=== PATIENT | female | born 1995 | race Caucasian/White ===

== ENCOUNTER 2021-08-14 09:24 | Emergency (ER) | payer BC, SELFPAY ==
--- NOTE | ~2021-08-14 | US_ITS ---
EXAMINATION: US OB <=14 wk fetus w TV DATE: 08/14/2021 10:52 INDICATION: Abdominal pain during first trimester TECHNIQUE: Real-time pelvic ultrasound utilizing both a transvaginal and transabdominal probe was pe rformed. The interpreting radiologist was not present for the study. COMPARISON: None. FINDINGS: The uterus measures 7.3 x 5.5 x 4.9 cm. There is an intrauterine gestational sac. A yolk sac is iden tified but no measurable pole. The mean sac diameter measures 1.6 cm, which correlates with an estimated gestational age of 6 weeks and 3 days. The right ovary measures 2.5 x 2.1 x 1.8 cm. The left ovary measures 3.8 x 1.8 x 1.8 cm. There is no free fluid in the pelvis. IMPRESSION: 1. Intrauterine gestational sac with yolk sac but no measurable pole yet apparent likely due to early stage of . 2. Gestational age by ultrasound of 6 weeks 3 day(s) +/- 4 day(s) with ultrasound estimated date of delivery (LANRE) of 04/06/2022. Reviewed, dictated and finalized at location B. IMPRESSION: 1. Intrauterine gestational sac with yolk sac but no measurable pole yet apparent likely due to early stage of . 2. Gestational age by ultrasound of 6 weeks 3 day(s) +/- 4 day(s) with ultraso und estimated date of delivery (LANRE) of 04/06/2022.
[2021-08-14 09:31] VITALS: BP 132/78; PULSE 92; RESP 14; TEMP 36.6; O2SAT 99
--- NOTE | 2021-08-14 09:35 | PC.NURSE ---
Patient states she has syncopal episodes when having blood drawn and does not wish to have labs drawn in triage.
--- NOTE | 2021-08-14 09:58 | ED.ABDPAIN ---
HPI - Abdominal Pain General Chief Complaint: Abdominal Pain Stated Complaint: 6 weeks , abdominal pain Time Seen by Provider: 08/14/21 09:56 Source: patient and family Mode of arrival: ambulatory Limitations: no limitations History of Present Illness HPI narrative: The patient is a 25-year-old female, G1, P0, currently 6 weeks dated by last menstrual period and positive at home test, who presents to the emergency department for evaluation of abdominal pain, nausea and vomiting. Patient reports she has had nausea with this with daily episodes of emesis, but reports increase in frequency of emesis over the past 24 hours as well as cramping abdominal pain in the middle to upper abdomen. Patient denies lower abdominal pain, vaginal bleeding, vaginal discharge, contraction-like pain or loss of fluids. She denies any flank pain, dysuria or hematuria. She reports loose stools consistent with diarrhea without blood or mucus present. She denies constipation. Patient has not been taking anything for her nausea. She is going to establish with the [facility] but has not had a confirmatory ultrasound or follow-up in their clinic at this point. Patient denies fever, chills, chest pain, cough. She does report mild congestion without sore throat. Patient has a history of COVID infection in 2020 which did not require hospitalization. She is fully vaccinated. Related Data Home Medications Medication Instructions Recorded Confirmed escitalopram oxalate mg 08/14/21 Allergies Allergy/AdvReac Type Severity Reaction Status Date / Time No Known Allergies Allergy Mild Verified 06/22/10 09:18 Review of Systems Review of Systems: CONSTITUTIONAL: Denies fever, chills, or sweats. EYES: Denies visual changes, redness, or discharge. ENT: Reports rhinorrhea, congestion, denies sore throat or otalgia CARDIOVASCULAR: Denies chest pain, palpitations, or edema. RESPIRATORY: Denies cough or dyspnea. GASTROINTESTINAL: Reports abdominal pain, nausea, vomiting, diarrhea GENITOURINARY: Denies dysuria or hematuria. SKIN: Denies rash or itching. MUSCULOSKELETAL: Denies back pain, joint pain, or myalgia. NEUROLOGIC: Denies headache, numbness, or weakness. [facility] Family History Family History (Updated 11/18/15 @ 23:19 by DOCTOR UNKNOWN) Father Family history of diabetes mellitus in first degree relative Social History Social History Smoking status: Never smoker Second hand tobacco smoke exposure: No Alcohol intake: never Exam Narrative: GENERAL: Awake, alert, conversant HEAD: Normocephalic, atraumatic. EYES: PERRLA and EOMI. ENT: Nares clear, no rhinorrhea or epistaxis. Mucous membranes moist. NECK: Supple. CHEST: No respiratory distress, breathing even and non labored HEART: Regular rate, sinus rhythm ABDOMEN:Non distended, tender throughout the periumbilical area without rebound, rigidity or guarding, no flank tenderness EXTREMITIES: Normal range of motion. No edema. SKIN: Warm, dry, no rash. NEURO:No focal deficits. Alert and oriented x3 Course Vital Signs Vital signs: Vital Signs Temperature 36.6 C 08/14/21 09:31 Pulse Rate 92 08/14/21 09:31 Respiratory Rate 14 08/14/21 09:31 Blood Pressure 132/78 08/14/21 09:31 Pulse Oximetry 99 08/14/21 09:31 Temperature 36.6 C 08/14/21 09:31 Pulse Rate 92 08/14/21 09:31 Respiratory Rate 14 08/14/21 09:31 Blood Pressure 132/78 08/14/21 09:31 Pulse Oximetry 99 08/14/21 09:31 MDM - Abdominal Pain MDM Narrative Medical decision making narrative: Patient presenting for evaluation abdominal pain in the setting of early . Consistent with vomiting, loose stools which may be clinically consistent with gastroenteritis. Patient without focal right lower quadrant pain on exam no focal right upper quadrant pain on exam which makes clinical diagnosis of appendicitis or cholecystitis very unlik
[2021-08-14 10:22] LABS: Basophils Absolute Auto 0.1 K/mm3 (0.0-0.1); Basophils Percent Auto 0.6 % (0.2-1.2); Eosinophils Absolute Auto 0.1 K/mm3 (0-0.3); Eosinophils Percent Auto 1.2 % (0-4.4); Hemoglobin 12.7 g/dL (12.0-15.0); Immature Granulocyte Absolute 0.03 K/mm3 (0.00-0.031); Immature Granulocyte Percent A 0.4 % (0-0.5); Lymphocytes Absolute Auto 1.97 K/mm3 (0.9-3.2); Lymphocytes Percent Auto 23.9 % (18.3-44.2); Mean Corpuscular HGB Conc 35.3 g/dl (32-36); Mean Corpuscular Hemoglobin 31.9 pg (26-34); Mean Corpuscular Volume 90.5 fl (80-100); Mean Platelet Volume 8.7 fl (7.4-10.4); Monocytes Absolute Auto 0.6 K/mm3 (0.1-0.6); Monocytes Percent Auto 6.7 % (2.6-8.5); Neutrophils Absolute Auto 5.5 K/mm3 (1.3-6.7); Neutrophils Percent Auto 67.2 % (45.5-73.1); Platelet Count Result 303 k/mm3 (150-375); Red Blood Count 3.98 M/mm3 (4.2-5.4); Red Cell Distribution Width 11.6 % (11.5-14.5); White Blood Count 8.2 K/mm3 (4.5-10.0)
[2021-08-14 10:33] LABS: Alanine Aminotransferase 10 U/L (4-35); Albumin Level 4.1 g/dL (3.5-5.1); Alkaline Phosphatase 51 U/L (38-126); Anion Gap 7 mmol/L (8-16); Aspartate Amino Transferase 22 U/L (14-36); Bilirubin,Total 0.7 mg/dL (0.2-1.3); Blood Urea Nitrogen 10 mg/dL (7-17); Calcium 8.6 mg/dL (8.4-10.2); Carbon Dioxide 20 mmol/L (22-30); Chloride 108 mmol/L (98-107); Estimated CRCL calculation 140 ml/min; Estimated Glomerular Filt Rate > 60; Glucose 93 mg/dL (65-110); Lipase 49 U/L (23-300); Potassium 3.7 mmol/L (3.4-5.0); Sodium 135 mmol/L (137-145)
[2021-08-14] MEDS: METOCLOPRAMIDE HCL INJ 10 MG/2 ML VIAL IV PUSH (11:09)
[2021-08-14 11:11] LABS: Add Urine Microscopic? YES; Appearance Urine Cloudy (Clear); Bilirubin Urine Negative (Negative); Blood Urine Negative (Negative); Color Urine Yellow (Yellow); Glucose Urine UA Negative (Negative); Ketones Urine 1+ mg/dL (Negative); Leukocyte Esterase Ur Trace LEU/UL (Negative); Mucus Urine Few /lpf; Nitrate Urine Negative (Negative); Protein Urine Negative (Negative); Specific Grav Ur 1.024 (1.001-1.035); Squamous Epithelial Cell Urine Many /hpf (Few); Urobilinogen Urine Negative mg/dL (<2.0)
--- NOTE | 2021-08-14 13:31 | PC.NURSE ---
PT stated she was ready to leave. PT did not want to stay any longer and requested to be discharged.
== END 2021-08-14 13:29 | disposition home or self-care (01) ==
PROVIDERS: Emergency Provider Emergency Medicine
DX: O26.891 Other specified pregnancy related conditions, first trimester (principal); R10.9 Unspecified abdominal pain; O99.281 Endocrine, nutritional and metabolic diseases complicating pregnancy, first trimester; E86.0 Dehydration; Z86.16 Personal history of COVID-19; Z3A.01 Less than 8 weeks gestation of pregnancy
CPT/HCPCS: 36415; 76801; 76817; 80053; 81001; 81025; 83690; 84702; 85025; 85461; 96374; 96375; 99284; J0131; J2765

== ENCOUNTER 2021-11-21 13:30 | Outpatient (CLI) | payer BC, MEDICAID, SELFPAY ==
--- NOTE | 2021-11-23 16:13 | WPDHOLTEREM ---
Holter/Event Monitor Holter/Event Monitor Date of procedure: 11/21/21 Holter/Event Procedure: 24 Hr Holter Monitor Indications: Tachycardia/RBBB Conclusion: 1. 24 hour holter monitor on 11/21/21. 2. Underlying rhythm is sinus rhythm. HR range 59-138 bpm; average HR 85 bpm. 3. No premature supraventricular complexes. No supraventricular tachycardia. 4. There are 2 premature ventricular complexes. No ventricular tachycardia. 5. No sinoatrial or atrioventricular blocks. No significant pauses greater than 2 seconds. 6. Patient reports symptoms of heart beating hard, chest pain, dizziness which demonstrate sinus rhythm, HR range 84-104 bpm.
== END 2021-11-21 13:31 | disposition home or self-care (01) ==
LOC: ANHCARD 13:33
PROVIDERS: PCP Registered Nurse; Visit Provider Obstetrics & Gynecology
DX: R00.0 Tachycardia, unspecified (principal)
CPT/HCPCS: 93225; 93226

== ENCOUNTER 2022-03-23 13:43 | Outpatient (RCR) | payer OTHER, MEDICAID, SELFPAY ==
[2022-03-23 14:19] VITALS: BP 114/72; PULSE 77
== END 2022-04-20 13:23 | disposition home or self-care (01) ==
LOC: ANHOBOP 13:43
PROVIDERS: PCP Registered Nurse; Visit Provider Obstetrics & Gynecology
DX: O36.8130 Decreased fetal movements, third trimester, not applicable or unspecified (principal); Z3A.37 37 weeks gestation of pregnancy
CPT/HCPCS: 59025

== ENCOUNTER 2022-04-05 18:07 | Inpatient (IN) | payer OTHER, MEDICAID, SELFPAY ==
[2022-04-05] VITALS (79 sets, daily range): BP systolic 93–120; BP diastolic 43–77; PULSE 75–105; RESP 18; TEMP 36.3–36.6; O2SAT 93–100; BMI 33.1
--- NOTE | 2022-04-05 18:27 | LDADM ---
This patient, Lavonne Brown, was admitted to Labor/Delivery/Recovery 106 on 04/05/22 at 18:07. Plans for labor, pain management and were discussed with patient. Patient/family oriented to hospital policies and general routines including ID bracelet, bed and alarms, visiting hours, pain management, procedures, bathroom and other care routines, personal items, smoking policy, room service/diet and guest tray routines, security routines, and visiting hours. Patient/Family are encouraged to report perceived risks to care and to ask questions if they do not understand what they are told or what they should do. See OBIX for further documentation.
[2022-04-05 18:42] LABS: Basophils Percent Auto 0.2 % (0.2-1.2); Eosinophils Absolute Auto 0.3 K/mm3 (0-0.3); Eosinophils Percent Auto 2.7 % (0-4.4); Hematocrit 35.4 % (37.0-47.0); Hemoglobin 11.8 g/dL (12.0-15.0); Immature Granulocyte Absolute 0.08 K/mm3 (0.00-0.031); Immature Granulocyte Percent A 0.7 % (0-0.5); Lymphocytes Absolute Auto 1.49 K/mm3 (0.9-3.2); Lymphocytes Percent Auto 13.3 % (18.3-44.2); Mean Corpuscular HGB Conc 33.3 g/dl (32-36); Mean Corpuscular Hemoglobin 31.4 pg (26-34); Mean Corpuscular Volume 94.1 fl (80-100); Monocytes Absolute Auto 0.5 K/mm3 (0.1-0.6); Monocytes Percent Auto 4.8 % (2.6-8.5); Neutrophils Absolute Auto 8.8 K/mm3 (1.3-6.7); Neutrophils Percent Auto 78.3 % (45.5-73.1); Platelet Count Result 294 k/mm3 (150-375); Red Blood Count 3.76 M/mm3 (4.2-5.4); Red Cell Distribution Width 13.1 % (11.5-14.5); White Blood Count 11.2 K/mm3 (4.5-10.0)
[2022-04-05] MEDS: LACTATED RINGERS 1,000 ML 125 ML IV CONT ×2 (19:30→23:40)
[2022-04-05] MEDS: ONDANSETRON INJ 4 MG/2 ML VIAL IV PUSH (19:40)
[2022-04-05] MEDS: OXYTOCIN 30 UNITS/NS 500 ML 30 UNITS/500 ML BAG 6 UNITS IV CONT (20:23)
[2022-04-06] VITALS (188 sets, daily range): BP systolic 87–139; BP diastolic 41–98; PULSE 25–128; RESP 16–18; TEMP 36.6–37.1; O2SAT 82–100
[2022-04-06 05:18] LABS: Amphetamine Screen Urine Negative (Negative); Barbiturate Screen Urine Negative (Negative); Benzodiazepines Screen Urine Negative (Negative); Cannabinoid Screen Urine Positive (Negative); Cocaine Screen Urine Negative (Negative); Methadone Screen Urine Negative (Negative); Opiate Screen Urine Negative (Negative); Phencyclidine Screen Urine Negative (Negative)
--- NOTE | 2022-04-06 06:40 | WPDANESEPP ---
Anes - Eval Pre Procedure Procedure: labor epidural Date/Time: 04/06/22 06:40 Pre Op Diagnosis: IOL Patient Data Age: 26 Gender: F Height: 1.7 m Weight: 96 kg Last Vital Signs Temp 36.6 C 04/05/22 23:00 Pulse 106 H 04/06/22 06:15 Resp 18 04/05/22 23:00 BP 139/91 H 04/06/22 06:15 Pulse Ox 100 04/06/22 06:37 O2 Del Method Room Air 04/05/22 18:26 Allergies Allergy/AdvReac Type Severity Reaction Status Date / Time No Known Allergies Allergy Mild Verified 03/13/22 15:51 Home Medications Medication Instructions Recorded Confirmed Type acetaminophen 500 mg capsule 500 mg PO Q6H PRN fever or pain 08/14/21 Rx #30 caps escitalopram oxalate 20 mg tablet 20 mg 08/14/21 History Laboratory Tests 04/05/22 04/05/22 04/05/22 18:36 18:36 18:36 WBC 11.2 K/mm3 H K/mm3 (4.5-10.0) RBC 3.76 M/mm3 L M/mm3 (4.2-5.4) Hgb 11.8 g/dL L g/dL (12.0-15.0) Hct 35.4 % L % (37.0-47.0) MCV 94.1 fl fl (80-100) MCH 31.4 pg pg (26-34) MCHC 33.3 g/dl g/dl (32-36) RDW 13.1 % % (11.5-14.5) Plt Count 294 k/mm3 k/mm3 (150-375) MPV 10.0 fl fl (7.4-10.4) Immature Gran % (Auto) 0.7 % H % (0-0.5) Neut % (Auto) 78.3 % H % (45.5-73.1) Lymph % (Auto) 13.3 % L % (18.3-44.2) Crawford % (Auto) 4.8 % % (2.6-8.5) Eos % (Auto) 2.7 % % (0-4.4) Baso % (Auto) 0.2 % % (0.2-1.2) Lymph # (Auto) 1.49 K/mm3 K/mm3 (0.9-3.2) Crawford # (Auto) 0.5 K/mm3 K/mm3 (0.1-0.6) Eos # (Auto) 0.3 K/mm3 K/mm3 (0-0.3) Baso # (Auto) 0.0 K/mm3 K/mm3 (0.0-0.1) Abs Immat Gran (auto) 0.08 K/mm3 H K/mm3 (0.00-0.031) Absolute Neuts (auto) 8.8 K/mm3 H K/mm3 (1.3-6.7) Absolute Nucleated RBC 0.0 K/mm3 K/mm3 (0.0-0.012) Nucleated RBC % 0.0 % % (0.0-0.2) Urine Opiates Screen Urine Methadone Screen Ur Barbiturates Screen Ur Phencyclidine Scrn Ur Amphetamine Screen U Benzodiazepines Scrn Urine Cocaine Screen U Cannabinoids Screen RPR Pending Blood Type O Positive Antibody Screen Negative 04/06/22 04:51 WBC RBC Hgb Hct MCV MCH MCHC RDW Plt Count MPV Immature Gran % (Auto) Neut % (Auto) Lymph % (Auto) Crawford % (Auto) Eos % (Auto) Baso % (Auto) Lymph # (Auto) Crawford # (Auto) Eos # (Auto) Baso # (Auto) Abs Immat Gran (auto) Absolute Neuts (auto) Absolute Nucleated RBC Nucleated RBC % Urine Opiates Screen Negative (Negative) Urine Methadone Screen Negative (Negative) Ur Barbiturates Screen Negative (Negative) Ur Phencyclidine Scrn Negative (Negative) Ur Amphetamine Screen Negative (Negative) U Benzodiazepines Scrn Negative (Negative) Urine Cocaine Screen Negative (Negative) U Cannabinoids Screen Positive A (Negative) RPR Blood Type Antibody Screen Patient hx anesthesia problems: none Family hx anesthesia problems: none Results Review: All pre-operative results and documents have been reviewed as part of the pre-operative evaluation. [facility] Past Medical History Medical History (Updated 04/06/22 @ 06:41 by Skylar Coley CRNA) Anxiety and depression Bundle branch block, left hemiblock Obesity (BMI 30-39.9) Family History Family History Father Family history of diabetes mellitus in first degree relative Grandparent Family history of diabetes mellitus in first degree relative Mother Hypertension Osteoarthritis Anxiety Asthma Grandparent Hypertension
[2022-04-06] MEDS: LACTATED RINGERS 1,000 ML 125 ML IV CONT ×2 (06:51→10:41)
--- NOTE | 2022-04-06 07:21 | WPDOBADMIT ---
Obstetrics - Admit Note Admission Note: record reviewed. No pertinent additions to the history and/or any subsequent changes in the physical findings that are not consistent with the expected course of the were found. elective IOL, hx prev right bundle branch block ans was seen in [place] with normal testing, holter monitor during normal, hx anxiety and depression stable on lexapro, gbs negative, IUPC placed, anticipate vaginal delivery Additions to the history and/or subsequent changes in the physical findings follow. None.
[2022-04-06] MEDS: fentaNYL CITRATE INJ (*CRX) 100 MCG/2 ML VIAL 50 MCG IV PUSH (08:34)
[2022-04-06] MEDS: miSOPROStol 200 MCG TABLET 1000 MCG (12:33)
[2022-04-06] MEDS: METHYLERGONOVINE MALEATE 0.2 MG/ML VIAL (12:42)
[2022-04-06] MEDS: OXYTOCIN 30 UNITS/NS 500 ML 30 UNITS/500 ML BAG 125 UNITS IV CONT (12:47)
[2022-04-06] MEDS: CARBOPROST TROMETHAMINE 250 MCG/ML AMPUL (12:47)
--- NOTE | 2022-04-06 12:54 | PM.OBPRVD ---
OB - Delivery Note Procedure Delivery date: 04/06/22 Procedure: vaginal delivery Induction method: AROM and Per Pitocin Protocol Delivery monitor: External FHT, External Uterine and Internal Uterine Route of delivery: Laceration Description: Perineal - 1st Degree and Vaginal (right) Delivery repair: vicryl Specimen: No Quantitative Blood Loss (ml): 700 Anesthesia type: Epidural Disposition: Floor Complications: uterine atony after delivery of placenta, bladder emptied, cytotec, methergine nad hemobate given, uterus firm at fundus [place] Baby Date of : 04/06/22 Time of : 12:17 Weeks of gestation at delivery: 39 gender: Male Weight (pounds): 8 Weight (ounces): 7 presentation: vertex position: Left Occiput Anterior Placenta delivery description: Spontaneous Cord Vessel Description: 3 Vessels, Nuchal Cord, Loose and Clamped/Cut score one minute: 7 score five minutes: 8 Narrative: baby skin to skin
[2022-04-06] MEDS: ONDANSETRON INJ 4 MG/2 ML VIAL IV PUSH (13:04)
[2022-04-06 14:41] LABS: Rapid Plasma Reagin Non-Reactive (NonReactive)
[2022-04-06] MEDS: BENZOCAINE 20% AER SPR (*SP) 56 GM CAN 1 SPRAY TOPICAL (15:00)
[2022-04-06] MEDS: WITCH HAZEL 40 PADS 1 PAD TOPICAL (15:00)
[2022-04-06] MEDS: IBUPROFEN 600 MG TABLET PO (15:44)
[2022-04-06] MEDS: ACETAMINOPHEN 325 MG TABLET 650 MG PO (18:27)
[2022-04-06] MEDS: ESCITALOPRAM OXALATE 10 MG TABLET 20 MG PO (18:43)
[2022-04-07 03:17] VITALS: BP 121/64; PULSE 78; RESP 16; TEMP 36.6; O2SAT 99
[2022-04-07] MEDS: LOPERAMIDE HCL 2 MG CAPSULE PO ×2 (03:44→10:45)
[2022-04-07 05:29] LABS: Hematocrit 28.5 % (37.0-47.0); Hemoglobin 9.3 g/dL (12.0-15.0)
[2022-04-07] MEDS: IBUPROFEN 600 MG TABLET PO ×3 (05:57→23:30)
--- NOTE | 2022-04-07 08:24 | PM.OBPNVD ---
OB - PN: Subj Subjective Date/time seen: 04/07/22 08:24 Patient comments: no complaints and pain well controlled baby status: doing well Narrative: Baby just coming up from level 2. OB - PN: Obj Data Labs 04/07/22 03:22 Labs: Laboratory Results - last 24 hr 04/05/22 04/07/22 18:36 03:22 Hgb 9.3 L Hct 28.5 L RPR Non-reactive OB - PN A/P Plan day: 1 Plan: routine care Time Spent With Patient Time: Total time spent is greater than 50% in coordination of care (as documented) at patient's floor/unit and/or counseling patient: Time with patient: less than 15 minutes Exam Narrative: NAD abdomen soft, nontender, fundus firm below the umbilicus Extremities nontender, 1+ edema
[2022-04-07 09:30] VITALS: BP 117/64; PULSE 85; RESP 18; TEMP 36.4; O2SAT 98
[2022-04-07] MEDS: MULTIVIT/MIN/PREN/FOL AC/IRON TABLET 1 TAB PO (10:04)
[2022-04-07] MEDS: POLYSACCHARIDE IRON COMPLEX 150 MG CAPSULE PO ×2 (10:04→17:17)
[2022-04-07] MEDS: ESCITALOPRAM OXALATE 10 MG TABLET 20 MG PO (17:18)
[2022-04-07 20:00] VITALS: BP 120/73; PULSE 87; RESP 18; TEMP 36.6
--- NOTE | 2022-04-08 06:22 | PM.OBPNVD ---
OB - PN: Subj Subjective Date/time seen: 04/08/22 06:22 Patient comments: no complaints baby status: doing well OB - PN: Obj Data Labs 04/07/22 03:22 OB - PN A/P Plan day: 2 Plan: routine care and discharge home Comments: consented for circumcision, completed. Time Spent With Patient Time: Total time spent is greater than 50% in coordination of care (as documented) at patient's floor/unit and/or counseling patient: Time with patient: less than 15 minutes Exam Narrative: NAD abdomen soft, nontender, fundus firm below the umbilicus Extremities nontender, 1+ edema
--- NOTE | 2022-04-08 06:28 | PM.OBDSVD ---
DS: Admitting Diagnosis Discharge Date 04/08/22 Admitting Diagnosis term IUP DS: Discharge Diagnosis Discharge Diagnosis (1) , delivered: Code(s): O80 - Encounter for full-term uncomplicated delivery Status: Acute OB - DS: Summary Hospital Course Hospital Course: Lavonne was admitted for induction of labor at 39w. She proceeded to have an uncomplicated vaginal delivery and course. She was discharged home on PPD 2. OB Procedures : Ultrasound OB Procedures Intrapartum: Spontaneous Vag Delivery OB Procedures: : None Peripartum Data Delivery Method: Natural Vaginal complications: none Status at Discharge Functional status at discharge: independent ambulation Time Spent with Patient Time attestation: Total time spent providing and/or coordinating discharge services: Exam Narrative: NAD abdomen soft, appropriately tender Ext non tender, 1+ edema Discharge Plan Discharge Attending physician on discharge: Marjan Acosta Discharging Clinician: Marjan Acosta Anticipated Discharge Date/Time: 04/08/22 06:27 Patient Disposition: Home, Self-Care Activity: pelvic rest Diet: regular Patient Instructions: Antibiotic Form Stand Alone Forms: General Discharge Information Follow-up/Referrals: Marjan Acosta MD [Physician] - 4 Weeks Discharge Medications: Continued escitalopram oxalate 20 mg tablet 20 mg Discontinued acetaminophen 500 mg capsule 500 mg PO Q6H PRN (Reason: fever or pain) Qty: 30 0RF Date of admission: 04/05/22 18:07 Primary Care Provider: Maria LuisaPatricia Admitting Provider: Marjan Acosta Attending physician on admission: Marjan Acosta Condition: Stable
[2022-04-08 07:45] VITALS: BP 95/50; PULSE 79; RESP 18; TEMP 36.9; O2SAT 100
[2022-04-08] MEDS: IBUPROFEN 600 MG TABLET PO (10:15)
[2022-04-08] MEDS: MULTIVIT/MIN/PREN/FOL AC/IRON TABLET 1 TAB PO (10:15)
[2022-04-08] MEDS: POLYSACCHARIDE IRON COMPLEX 150 MG CAPSULE PO (10:16)
--- NOTE | 2022-04-08 11:44 | PC.NURSE ---
Patient viewed the discharge video Mother & Baby Care, The First Two Weeks . Patient was given the opportunity and encouraged to ask questions. Patient verbalized understanding of information shared and has been given the mother/baby guide for home reference.
[2022-04-09 08:28] VITALS: BP 124/63; PULSE 85; RESP 20; TEMP 36.9; O2SAT 98
== END 2022-04-08 11:56 | disposition home or self-care (01) | DRG 807 ==
LOC: ANHLDR 04-06 12:12 → ANHOB2 04-06 15:23
PROVIDERS: Advanced Practice Midwife; Admitting Provider Obstetrics & Gynecology; PCP Registered Nurse; Visit Provider Obstetrics & Gynecology
DX: O36.63X0 Maternal care for excessive fetal growth, third trimester, not applicable or unspecified (principal); Z37.0 Single live birth; Z3A.39 39 weeks gestation of pregnancy; O70.0 First degree perineal laceration during delivery; O69.81X0 Labor and delivery complicated by cord around neck, without compression, not applicable or unspecified; O36.8330 Maternal care for abnormalities of the fetal heart rate or rhythm, third trimester, not applicable or unspecified; O99.344 Other mental disorders complicating childbirth; F41.8 Other specified anxiety disorders; O75.89 Other specified complications of labor and delivery
CPT/HCPCS: 36415; 80307; 85014; 85018; 85025; 86592; 86850; 86900; 86901; A9270; J2210; J2405; J2590; J2795; J3010; J7120

== ENCOUNTER 2024-02-04 18:49 | Emergency (ER) | payer BC, SELFPAY ==
--- NOTE | 2024-02-04 19:00 | ED.BACK ---
HPI - Back Pain/Injury General Chief Complaint: Back Pain/Injury Stated Complaint: Back Pain Time Seen by Provider: 02/04/24 19:19 Source: patient and RN notes reviewed Mode of arrival: ambulatory Limitations: no limitations History of Present Illness HPI Narrative: 28-year-old female presents with concern for low back pain that started today after a nap at 5:00 a.m.. She reports she is feeling tingling down her right leg into her toes. Reports some tingling in the right hand. She denies trauma or injury. She denies loss of bowel or bladder function, perianal anesthesia, fever, abdominal pain. She reports she was holding down a large [place] at work yesterday, she did not have pain at that time. MD elicited complaint: back pain Related Data Home Medications Medication Instructions Recorded Confirmed escitalopram oxalate 20 mg tablet 20 mg DIRECTED 08/14/21 02/04/24 Allergies Allergy/AdvReac Type Severity Reaction Status Date / Time No Known Allergies Allergy Mild Verified 03/13/22 15:51 Review of Systems Review of Systems: CONSTITUTIONAL: Denies malaise, chills, sweats, or fever. CARDIOVASCULAR: Denies chest pain, palpitations, or edema. RESPIRATORY: Denies cough or dyspnea. GASTROINTESTINAL: Denies abdominal pain, nausea, vomiting, diarrhea, loss of bowel function GENITOURINARY: Denies dysuria, hematuria, frequency, loss of bladder function. SKIN: Denies rash or itching. MUSCULOSKELETAL: Reports low back pain, tingling and numbness down the right leg and right hand NEUROLOGIC: Denies numbness, weakness, or headache. All systems reviewed & are unremarkable except as noted in HPI and below [facility] Past Medical History Medical History (Updated 02/04/24 @ 19:27 by Angie Saenz NP) Anxiety and depression Bundle branch block, left hemiblock Obesity (BMI 30-39.9) Family History Family History Father Family history of diabetes mellitus in first degree relative Grandparent Family history of diabetes mellitus in first degree relative Mother Hypertension Osteoarthritis Anxiety Asthma Grandparent Hypertension Osteoarthritis Anxiety Asthma Sibling Anxiety Social History Social History Smoking status: Former smoker Tobacco type: cigarettes Second hand tobacco smoke exposure: No Smoking end date: 07/21/21 Alcohol intake: never Substance use: former Lack of Transportation: No Lack of Food: Never True Current Housing: I Have Housing Concerned About Future Housing: No Difficulty Paying Gas/Electric Bills: No Difficulty Paying for Meds: No Currently Unemployed: No Education: Associate Degree Difficulty w/ Childcare or Family Care: No Spiritual care concerns: No Comments At time of signature, agree with nursing past medical, surgical, social and family history. There is no relevant family history pertinent to the presenting complaint Exam Narrative: GENERAL: Well-appearing, well-nourished, and in no acute distress. HEAD: Normocephalic, atraumatic. EYES: PERRLA and EOMI. NECK: Supple. No lymphadenopathy. CHEST: Clear to auscultation. No respiratory distress. HEART: Regular rate and rhythm. Distal pulses palpable and equal, cap refill <3 seconds ABDOMEN: Soft, nontender, nondistended, normal active bowel sounds, no palpable or pulsatile masses. No CVA tenderness MUSCULOSKELETAL: Normal range of motion and strength in all extremities; 5/5 strength with hip flexion and extension, dorsiflexion and extension, knee flexion and extension, plantar flexion and extension. Normal sensation in dermatomal distributions with sensitivity to light touch and pain. No midline back tenderness to palpation. No paraspinal tenderness. Transfers from sitting to standing. SKIN: Warm, dry, no rash. No ecchymosis, erythema, open wounds to back. NEURO: No focal deficits
[2024-02-04 19:12] VITALS: BP 91/65; PULSE 79; RESP 16; TEMP 36.6; O2SAT 100
[2024-02-04] MEDS: predniSONE 20 MG TABLET 60 MG PO (19:31)
== END 2024-02-04 19:37 | disposition home or self-care (01) ==
PROVIDERS: Emergency Provider Nurse Practitioner; PCP Registered Nurse
DX: M54.50 Low back pain, unspecified (principal); Z87.891 Personal history of nicotine dependence; F41.9 Anxiety disorder, unspecified; F32.A Depression, unspecified; E66.9 Obesity, unspecified; Z68.25 Body mass index [BMI] 25.0-25.9, adult
CPT/HCPCS: 99213; G0463; J7512